=== PATIENT | male | born 1960 | race African-American/Black ===

== ENCOUNTER 2017-03-15 12:01 | Emergency (ER) | payer MEDICAID ==
[~2017-03-15] VITALS: Ht 172.7 cm; Wt 90.0 kg
[2017-03-15 14:41] LABS: CLARITY URINE CLEAR (CLEAR); COLOR URINE YELLOW (YELLOW); GLUCOSE URINE NEGATIVE (NEGATIVE); KETONES URINE TRACE (NEGATIVE); LEUKOCYTE ESTERASE URINE NEGATIVE (NEGATIVE); NITRITE URINE NEGATIVE (NEGATIVE); OCCULT BLOOD URINE NEGATIVE (NEGATIVE); PROTEIN URINE NEGATIVE (NEGATIVE); SPECIFIC GRAVITY URINE 1.024 (1.005-1.030)
[2017-03-15 15:37] VITALS: BP 129/86
== END 2017-03-15 15:38 | disposition home or self-care (01) ==
LOC: ER 14:22
DX: R19.7 Diarrhea, unspecified (principal); F20.9 Schizophrenia, unspecified; R56.9 Unspecified convulsions; R39.15 Urgency of urination; Z88.0 Allergy status to penicillin
CPT/HCPCS: 81003; 99283

== ENCOUNTER 2017-05-01 07:42 | Emergency (ER) | payer MEDICAID ==
[~2017-05-01] VITALS: Ht 170.2 cm; Wt 93.0 kg
[2017-05-01 08:11] VITALS: BP 152/89
== END 2017-05-01 11:35 | disposition home or self-care (01) ==
LOC: ER 08:05
DX: J06.9 Acute upper respiratory infection, unspecified (principal); G40.909 Epilepsy, unspecified, not intractable, without status epilepticus; F20.9 Schizophrenia, unspecified; Z88.0 Allergy status to penicillin
CPT/HCPCS: 71010; 99283; J7030; Z7610

== ENCOUNTER 2023-04-14 10:08 | Emergency (ER) | payer MEDICAID, OTHER ==
[~2023-04-14] VITALS: Ht 172.7 cm; Wt 104.0 kg
[2023-04-14 10:11] VITALS: BP 163/106; PULSE 90; RESP 16; TEMP 99.2; O2SAT 100
== END 2023-04-14 11:55 | disposition home or self-care (01) ==
LOC: ER 10:59
DX: S01.312A Laceration without foreign body of left ear, initial encounter (principal); I10 Essential (primary) hypertension; Z88.0 Allergy status to penicillin; W26.0XXA Contact with knife, initial encounter; Y93.89 Activity, other specified; Y92.89 Other specified places as the place of occurrence of the external cause; Y99.8 Other external cause status; Z86.59 Personal history of other mental and behavioral disorders
CPT/HCPCS: 12011; 99283